=== PATIENT | male | born 1945 | race Caucasian/White ===

== ENCOUNTER 2017-05-18 07:56 | Emergency (ER) | payer OTHER ==
[2017-05-18 08:05] VITALS: BMI 40.3
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
[2017-05-18] MEDS ORDERED: ATORVASTATIN CA 40 MG TABLET (FP) ONE (10:14)
[2017-05-18] MEDS ORDERED: ACETAMINOPHEN 325 MG TABLET (FP) ONE (10:15)
[2017-05-18] MEDS ORDERED: ACETAMINOPHEN 325 MG TABLET (FP) PO ONE (10:40)
[2017-05-18] MEDS ORDERED: oxyCODONE HCL 5 MG TABLET PO ONE (12:13)
[2017-05-18] MEDS ORDERED: SODIUM CHLORIDE 0.9% 1000 ML INFUS.BAG IV ONE (12:14)
[2017-05-18] MEDS ORDERED: oxyCODONE HCL 5 MG TABLET ONE (12:17)
[2017-05-18 12:37] LABS: BASOPHIL 0.2 % (0-2.0); EOSINOPHIL 0.2 % (0-4.5)
[2017-05-18 12:40] LABS: MCHC 34.1 g/dl (32.0-35.9); MEAN CELL VOLUME 82.2 fl (80-96); MEAN PLT VOLUME 8.6 fl (7.5-11.1); NEUTROPHILS 88.6 % (42.8-82.8); PLATELET COUNT 147 K/MM3 (134-434); RDW 14.2 % (11.9-15.9); WHITE BLOOD COUNT 11.2 K/mm3 (4.0-10.0)
[2017-05-18 13:14] LABS: ANION GAP 7 (8-16); CALCIUM 9.1 mg/dL (8.5-10.1); CO2 29 mmol/L (21-32); CREATININE 0.7 mg/dL (0.7-1.3); GLUCOSE,RANDOM 210 mg/dL (74-106)
[2017-05-18 13:18] LABS: TROPONIN I 0.03 ng/ml (0.00-0.05)
[2017-05-18 15:49] VITALS: BP 145/78; PULSE 84; TEMP 97.8
--- NOTE | 2017-05-19 13:32 | EKG ---
Test Reason : Blood Pressure : / mmHG Vent. Rate : 103 BPM Atrial Rate : 103 BPM P-R Int : 172 ms QRS Dur : 088 ms QT Int : 382 ms P-R-T Axes : 047 041 060 degrees QTc Int : 500 ms SINUS TACHYCARDIA NONSPECIFIC ST AND T WAVE ABNORMALITY ABNORMAL ECG NO PREVIOUS ECGS AVAILABLE Confirmed by LIVIA SNEED MD ([id number]) on 05/19/2017 1:32:07 PM Referred By: Confirmed By:LIVIA SNEED MD
== END 2017-05-18 16:00 | disposition home or self-care (01) ==
LOC: JER 07:56
DX: R07.89 Other chest pain (principal); V43.52XA Car driver injured in collision with other type car in traffic accident, initial encounter; W22.11XA Striking against or struck by driver side automobile airbag, initial encounter; Y92.414 Local residential or business street as the place of occurrence of the external cause; Y93.89 Activity, other specified; Y99.9 Unspecified external cause status; E11.9 Type 2 diabetes mellitus without complications; Z79.84 Long term (current) use of oral hypoglycemic drugs
CPT/HCPCS: 36415; 71010-TC; 80048; 82550; 84484; 85025; 93005; 93010; 99284-25